=== PATIENT | female | born 1950 | race Caucasian/White ===

== ENCOUNTER → 2016-08-02 | Outpatient (CLI) | payer MEDICARE, OTHER | LOC: MW.CHFP 08:00 | DX: NODX10 (principal) ==

== ENCOUNTER → 2016-08-16 | Outpatient (CLI) | payer MEDICARE, OTHER | LOC: MW.CHFP 08:00 | PROVIDERS: ATTEND Emergency Medicine | DX: E66.01 Morbid (severe) obesity due to excess calories (principal); Z68.41 Body mass index [BMI] 40.0-44.9, adult ==

== ENCOUNTER → 2016-08-23 | Outpatient (CLI) | payer MEDICARE, OTHER | LOC: MW.CHFP 08:00 | PROVIDERS: ATTEND Emergency Medicine | DX: E66.01 Morbid (severe) obesity due to excess calories (principal); Z68.41 Body mass index [BMI] 40.0-44.9, adult ==

== ENCOUNTER → 2016-08-30 | Outpatient (CLI) | payer MEDICARE, OTHER | LOC: MW.CHFP 08:00 | PROVIDERS: ATTEND Emergency Medicine | DX: E66.01 Morbid (severe) obesity due to excess calories (principal); Z68.41 Body mass index [BMI] 40.0-44.9, adult ==

== ENCOUNTER → 2016-09-06 | Outpatient (CLI) | payer MEDICARE, OTHER | LOC: MW.CHFP 08:00 | PROVIDERS: ATTEND Emergency Medicine | DX: E66.01 Morbid (severe) obesity due to excess calories (principal); Z68.41 Body mass index [BMI] 40.0-44.9, adult ==

== ENCOUNTER → 2016-09-12 | Outpatient (CLI) | payer MEDICARE, OTHER ==
[2016-09-12 16:40] LABS: CHLORIDE,CL 104 mmol/L (98-110); SODIUM,NA 141 mmol/L (136-146)
== END | disposition home or self-care (01) ==
LOC: MW.CHFP 15:28
PROVIDERS: ATTEND Emergency Medicine
DX: R73.03 Prediabetes (principal); R73.09 Other abnormal glucose; J20.9 Acute bronchitis, unspecified
CPT/HCPCS: 36415; 80048; 83036; G0463

== ENCOUNTER 2016-09-17 19:57 | Emergency (ER) | payer MEDICARE, OTHER ==
[2016-09-17] MEDS ORDERED: Albuterol/Ipratropium 3.0-0.5 MG/3 ML Neb Soln NEB ONE (20:28)
--- NOTE | 2016-09-17 20:33 | EDM.PDOC ---
ED HISTORY OF PRESENT ILLNESS - General Chief Complaint: Respiratory Problem Stated Complaint: SICK/TROUBLE BREATHING Time Seen by Provider: 09/17/16 20:21 - History of Present Illness INITIAL COMMENTS - FREE TEXT/NARRATIVE: HISTORY AND PHYSICAL: History of present illness: The patient is a 66-year-old female with a history of diabetes who follows with our family practice clinic and presents with a six-day history of cough productive of white and yellow phlegm. Patient was seen last Sunday in the clinic by Dr. Fitch for a routine checkup for diabetes and had blood work done at that time. She states that she mentioned the cough to Dr. Fitch who thought she might have a bronchitis and put her on a Z-Idris. She has finished a Z-Idris and states that her symptoms never seem to improve. She has had subjective fevers and sweating but no documented fever and has had no nausea vomiting or diarrhea. She has no chest pain or shortness of breath. Does have a sore throat or sinus pain/drainage. She says she feels wheezy sometimes when she's trying to sleep but is more a like nasal drip in her throat then it long issue. The patient states she does have a history of influenza for which she was treated in July. Review of systems: As per history of present illness and below otherwise all systems reviewed and negative. Past medical history: As per history of present illness and as reviewed below otherwise noncontributory. Surgical history: As per history of present illness and as reviewed below otherwise noncontributory. Social history: No reported history of drug or alcohol abuse. Family history: As per history of present illness and as reviewed below otherwise noncontributory. Physical exam: General: Well-developed overweight female who has a slight nasal quality to voice. Vital signs of been noted by me. She is not breathless on evaluation. HEENT: Atraumatic, normocephalic, pupils reactive, negative for conjunctival pallor or scleral icterus, mucous membranes moist, throat clear, neck supple, nontender, trachea midline. There is no discrete sinus tenderness on palpation no cervical adenopathy or nuchal rigidity Lungs: Clear to auscultation with an occasional coarse breath sound more in the left base but no work or breathing or sensory muscle use, breath sounds equal bilaterally, there is no wheezing or stridor chest nontender. Heart: S1S2, regular, negative for clicks, rubs, or JVD. Abdomen: Soft, nondistended, nontender. Negative for masses or hepatosplenomegaly. NABS Genitourinary: Deferred. Rectal: Deferred. Extremities: Atraumatic, negative for cords or calf pain. Neurovascular unremarkable. Neuro: Awake, alert, oriented. Cranial nerves II through XII unremarkable. Cerebellum unremarkable. Motor and sensory unremarkable throughout. Exam nonfocal. Diagnostics: CBC CMP influenza swab UA urine culture if indicated chest x-ray Therapeutics: Duo neb Patient states that she does feel more open after the DuoNeb and I will give her inhaler and spacer for home. She is aware of the chest x-ray findings and do to her presentation, nontoxic state and vitals I think we can try outpatient treatment. I will give her a dose of Rocephin here and send her home on Cefdnir. I've advised close followup in the clinic and reasons to return to the ER. Her WBC count from today is improved from the one performed 2 days ago as an outpatient. Repeat O2 sat in the ER is 96% at 2135p Impression: Left lower lobe pneumonia Definitive disposition and diagnosis as appropriate pending reevaluation and review of above. - Related Data Allergies/ADRs: Allergies Allergy/AdvReac Type Severity Reaction Status Date / Time Penicillins Allergy Intermediate Rash Verified 09/17/16 20:14 acetaminophen Allergy Lightheaded Verified 09/17/16 20:14 [From Darvocet-N 100] ness clotrimazole Allergy Itching Verified 09/17/16 20:15 [From Gyne-Lotrimin] miconazole Allergy Itching Verified 09/17/16 20:15 [From Monistat 1 Combo Pack] propoxyphene napsylate Allergy Lightheaded Verified 09/17/16 20:14 [From Darvocet-N 100] ness skin cleanser combination Allergy Itching Verified 09/17/16 20:15 no.17 [From Monistat 3] tioconazole Allergy Itching Verified 09/17/16 20:15 [From Monistat 1 (tioconazole)] Home Meds: Home Meds Furosemide [Lasix] 20 mg PO DAILY PRN 08/10/14 [History] LORazepam [Ativan] 1 mg PO ASDIRECTED PRN 08/10/14 [History] Sertraline [Zoloft] 75 mg PO DAILY 07/23/16 [History] Past Medical History HEENT History: Reports: None Cardiovascular History: Reports: None Respiratory History: Reports: None PLANT PATHOLOGIST History: Reports: None Musculoskeletal History: Reports: Arthritis Neurological History: Reports: None Psychiatric History: Reports: Anxiety, Depression Endocrine/Metabolic History: Reports: Diabetes, type II - Infectious Disease History Infectious Disease History: Reports: Chicken pox, Measles, Mumps - Past Surgical History GI Surgical History: Reports: Appendectomy, Cholecystectomy Female Surgical History: Reports: Hysterectomy Social & Family History - Family History Family Medical History: Noncontributory - Tobacco Use Smoking Status *Q: Never Smoker Second Hand Smoke Exposure: No - Caffeine Use Caffeine Use: Reports: None - Alcohol Use Days Per Week of Alcohol Use: 0 - Recreational Drug Use Recreational Drug Use: No ED ROS GENERAL - Review of Systems Review Of Systems: ROS reveals no pertinent complaints other than HPI. ED EXAM, GENERAL - Physical Exam Exam: See Below (See dictation) Course - Vital Signs Last Recorded V/S: Last Vital Signs Temp 37.0 C 09/17/16 20:08 Pulse 97 09/17/16 20:08 Resp 18 09/17/16 20:08 BP 142/67 H 09/17/16 20:08 Pulse Ox 99 09/17/16 20:28 - Orders/Labs/Meds Orders: Active Orders 24 hr Category Date Time Status Communication Order [RC] STAT Care 09/17/16 21:35 Active RT Aerosol Therapy [RC] ASDIRECTED Care 09/17/16 20:28 Active Chest 2V [CR] Stat Exams 09/17/16 20:28 Taken INFLUENZA A+B AG SCREEN [RM] Stat Lab 09/17/16 20:50 Received Labs: Laboratory Tests 09/17/16 09/17/16 09/17/16 Range/Units 20:35 20:50 20:50 WBC 13.30 H (4.0-11.0) K/uL RBC 4.09 L (4.30-5.90) M/uL Hgb 11.3 L (12.0-16.0) g/dL Hct 35.5 L (36.0-46.0) % MCV 86.8 (80.0-98.0) fL MCH 27.6 (27.0-32.0) pg MCHC 31.8 (31.0-37.0) g/dL RDW Std Deviation 43.7 (28.0-62.0) fl RDW Coeff of Linsey 14 (11.0-15.0) % Plt Count 341 (150-400) K/uL MPV 9.30 (7.40-12.00) fL Neut % (Auto) 75.6 (48.0-80.0) % Lymph % (Auto) 16.7 (16.0-40.0) % [place] % (Auto) 6.9 (0.0-15.0) % Eos % (Auto) 0.6 (0.0-7.0) % Baso % (Auto) 0.2 (0.0-1.5) % Neut # (Auto) 10.1 H (1.4-5.7) K/uL Lymph # (Auto) 2.2 (0.6-2.4) K/uL [place] # (Auto) 0.9 H (0.0-0.8) K/uL Eos # (Auto) 0.1 (0.0-0.7) K/uL Baso # (Auto) 0.0 (0.0-0.1) K/uL Nucleated RBC % 0.0 /100WBC Nucleated RBCs # 0 K/uL Sodium 140 (136-146) mmol/L Potassium 3.9 (3.5-5.1) mmol/L Chloride 106 (98-110) mmol/L Carbon Dioxide 24 (21-31) mmol/L BUN 11 (6.0-23.0) mg/dL Creatinine 0.8 (0.6-1.5) mg/dL Est Cr Clr Drug Dosing 55.45 mL/min Estimated GFR (MDRD) > 60.0 ml/min Glucose 95 (60-110) mg/dL Calcium 9.0 (8.8-10.8) mg/dL Total Bilirubin 0.3 (0.1-1.5) mg/dL AST 13 (5-40) IU/L ALT 12 (8-54) IU/L Alkaline Phosphatase 57 (40-150) Total Protein 6.7 (6.0-8.0) g/dL Albumin 3.5 (3.4-4.8) g/dL Globulin 3.2 (2.0-3.5) g/dL Albumin/Globulin Ratio 1.1 L (1.3-2.8) Urine Color YELLOW Urine Appearance CLEAR Urine pH 7.0 (5.0-8.0) Ur Specific [place] 1.015 (1.001-1.035) Urine Protein TRACE (NEGATIVE) mg/dL Urine Glucose (UA) NEGATIVE (NEGATIVE) mg/dL Urine Ketones TRACE H (NEGATIVE) mg/dL Urine Occult Blood NEGATIVE (NEGATIVE) Urine Nitrite NEGATIVE (NEGATIVE) Urine Bilirubin NEGATIVE (NEGATIVE) Urine Urobilinogen 2.0 H (<2.0) EU/dL Ur Leukocyte Esterase NEGATIVE (NEGATIVE) Urine RBC 0-2 (0-2/HPF) Urine WBC 1-2 (0-5/HPF) Ur Epithelial Cells OCCASIONAL (NONE-FEW) Urine Bacteria FEW (NEGATIVE) Urine Mucus LIGHT (NONE-MOD) Meds: Medications Discontinued Medications Generic Name Dose Route Start Last Admin Trade Name Freq PRN Reason Stop Dose Admin Albuterol/Ipratropium 3 ml 09/17/16 20:28 09/17/16 20:42 Duoneb 3.0-0.5 Mg/3 Ml NEB 09/17/16 20:29 3 ml ONETIME ONE Administration Ceftriaxone Sodium 1,000 mg/ 4 mls @ 4 mls/sec 09/17/16 21:37 09/17/16 21:52 Lidocaine HCl IM 09/17/16 21:38 4 mls/sec ONETIME ONE Administration Departure - Departure Time of Disposition: 21:56 Disposition: Home, Self-Care 01 Condition: good Clinical Impression: Pneumonia Qualifiers: Pneumonia type: due to unspecified organism Laterality: left Lung location: lower lobe of lung Qualified Code(s): J18.1 - Lobar pneumonia, unspecified organism Forms: ED Department Discharge Additional Instructions: The following information is given to patients seen in the emergency department who are being discharged to home. This information is to outline your options for follow-up care. We provide all patients seen in our emergency department with a follow-up referral. The need for follow-up, as well as the timing and circumstances, are variable depending upon the specifics of your emergency department visit. If you don't have a primary care physician on staff, we will provide you with a referral. We always advise you to contact your personal physician following an emergency department visit to inform them of the circumstance of the visit and for follow-up with them and/or the need for any referrals to a consulting specialist. The emergency department will also refer you to a specialist when appropriate. This referral assures that you have the opportunity for followup care with a specialist. All of these measure are taken in an effort to provide you with optimal care, which includes your followup. Under all circumstances we always encourage you to contact your private physician who remains a resource for coordinating your care. When calling for followup care, please make the office aware that this follow-up is from your recent emergency room visit. If for any reason you are refused follow-up, please contact the [facility] emergency department at and ask to speak to the emergency department charge nurse. [facility] Primary care- Internal Medicine and Family [address] [address] Please take antibiotics as directed and use your inhaler as needed every 6 hours. Use Tessalon Perles for cough. Please push hydration and rest and use [id number] Tylenol/ibuprofen for fever and pains. Please return to ER as needed and as discussed and also call the clinic tomorrow for a followup appointment with Dr. Fitch later this week. - My Orders Last 24 Hours: My Active Orders 09/17/16 20:28 RT Aerosol Therapy [RC] ASDIRECTED Chest 2V [CR] Stat 09/17/16 20:50 INFLUENZA A+B AG SCREEN [RM] Stat 09/17/16 21:35 Communication Order [RC] STAT - Assessment/Plan Last 24 Hours: My Active Orders 09/17/16 20:28 RT Aerosol Therapy [RC] ASDIRECTED Chest 2V [CR] Stat 09/17/16 20:50 INFLUENZA A+B AG SCREEN [RM] Stat 09/17/16 21:35 Communication Order [RC] STAT
[2016-09-17 21:24] LABS: CHLORIDE,CL 106 mmol/L (98-110); SODIUM,NA 140 mmol/L (136-146)
[2016-09-17] MEDS ORDERED: cefTRIAXone 1,000 MG in Lidocaine 1% 4 ML IM ONE (21:37)
[2016-09-17 21:58] VITALS: BP 143/64
--- NOTE | 2016-09-18 12:19 | CR ---
EXAM DATE: 09/17/16 PATIENT'S AGE: 66 Patient: JUANITA BRADY Facility: [place], [place] Site . Site : 1950 Study: XRay Chest [id number]/16/2017 9:07:56 PM Ordering Physician: Tasha Lindsay Final Report: TECHNIQUE: PA and lateral chest. INDICATIONS: Pain, shortness of breath, cough. FINDINGS: Subtle opacity in the left lower lobe best seen on the lateral view and compatible with pneumonia. Right lung clear. Heart size and pulmonary vascularity are normal. Upper abdominal surgical clips. IMPRESSION: Left lower lobe pneumonia. Dictated by Blaine Chairez MD @ 09/17/2016 9:20:58 PM Dictated by: Blaine Chairez MD @ 09/17/2016 21:21:02 (Electronic Signature) Report Signed by Proxy and Original Signed Document filed in the Medical Record. MTDD
== END 2016-09-17 22:21 | disposition home or self-care (01) ==
LOC: MW.ED 19:57
DX: J18.1 Lobar pneumonia, unspecified organism (principal); F41.8 Other specified anxiety disorders; E11.9 Type 2 diabetes mellitus without complications; Z90.49 Acquired absence of other specified parts of digestive tract; Z90.710 Acquired absence of both cervix and uterus; Z79.899 Other long term (current) drug therapy; Z88.0 Allergy status to penicillin; Z88.6 Allergy status to analgesic agent; Z88.8 Allergy status to other drugs, medicaments and biological substances
CPT/HCPCS: 36415; 71020; 80053; 81001; 85025; 87804; 94664; 96372; 99284; J0696

== ENCOUNTER → 2016-09-20 | Outpatient (CLI) | payer MEDICARE, OTHER ==
--- NOTE | 2016-09-20 15:46 | CR ---
EXAMINATION: Two-view chest (PA and Lateral views). HISTORY: Pneumonia. Comparison: 09/17/2016. FINDINGS: The trachea is midline. The cardiomediastinal silhouette is within normal limits. There is patchy in filtrate within the left lung base, grossly unchanged. No pleural effusion or pneumothorax. Osseous structures appear unremarkable. IMPRESSION: Patchy, unchanged left basilar infiltrate.
== END | disposition home or self-care (01) ==
LOC: MW.CHFP 15:10
PROVIDERS: ATTEND Emergency Medicine
DX: J18.1 Lobar pneumonia, unspecified organism (principal); R06.2 Wheezing; G47.10 Hypersomnia, unspecified; G47.30 Sleep apnea, unspecified
CPT/HCPCS: 71020; 71020-26; G0463

== ENCOUNTER → 2016-10-04 | Outpatient (CLI) | payer MEDICARE, OTHER | LOC: MW.CHFP 16:14 | PROVIDERS: ATTEND Physician Assistant | DX: E61.1 Iron deficiency (principal); J02.9 Acute pharyngitis, unspecified | CPT/HCPCS: 36415; 83540; G0463 ==

== ENCOUNTER → 2016-10-05 | Outpatient (CLI) | payer MEDICARE, OTHER | LOC: MW.CHFP 09:38 | PROVIDERS: ATTEND Physician Assistant | DX: J02.9 Acute pharyngitis, unspecified (principal) | CPT/HCPCS: 87081; 87880 ==

== ENCOUNTER → 2016-10-06 | Outpatient (CLI) | payer MEDICARE, OTHER | LOC: MW.CHFP 08:00 | PROVIDERS: ATTEND Emergency Medicine | DX: E61.1 Iron deficiency (principal); J06.9 Acute upper respiratory infection, unspecified; B97.89 Other viral agents as the cause of diseases classified elsewhere | CPT/HCPCS: G0463 ==

== ENCOUNTER → 2016-10-11 | Outpatient (CLI) | payer MEDICARE, OTHER | LOC: MW.CHFP 08:00 | PROVIDERS: ATTEND Emergency Medicine | DX: NODX10 (principal); E66.01 Morbid (severe) obesity due to excess calories; Z68.41 Body mass index [BMI] 40.0-44.9, adult ==

== ENCOUNTER 2017-05-02 06:15 | Emergency (ER) | payer MEDICARE, OTHER ==
[2017-05-02 06:30] VITALS: BP 144/52
--- NOTE | 2017-05-02 06:46 | EDM.PDOC ---
ED HPI GENERAL MEDICAL PROBLEM - General Chief Complaint: ENT Problem Stated Complaint: MOUTH SORES, LINGERING COLD, EYES MATTERED SHUT Time Seen by Provider: 05/02/17 06:43 - History of Present Illness INITIAL COMMENTS - FREE TEXT/NARRATIVE: HISTORY AND PHYSICAL: History of present illness: Patient 67-year-old white female presents with a concern of recent viral syndrome now has oral lesions and concern of discomfort. Review of systems: As per history of present illness and below otherwise all systems reviewed and negative. Past medical history: As per history of present illness and as reviewed below otherwise noncontributory. Surgical history: As per history of present illness and as reviewed below otherwise noncontributory. Social history: No reported history of drug or alcohol abuse. Family history: As per history of present illness and as reviewed below otherwise noncontributory. Physical exam: HEENT: Atraumatic, normocephalic, pupils reactive, negative for conjunctival pallor or scleral icterus, mucous membranes moist, throat clear, neck supple, nontender, trachea midline. Patient has multiple aphthous ulcers consistent with viral plaque noted intraorally Lungs: Clear to auscultation, breath sounds equal bilaterally, chest nontender. Heart: S1S2, regular, negative for clicks, rubs, or JVD. Abdomen: Soft, nondistended, nontender. Negative for masses or hepatosplenomegaly. Negative for costovertebral tenderness. Pelvis: Stable nontender. Genitourinary: Deferred. Rectal: Deferred. Extremities: Atraumatic, negative for cords or calf pain. Neurovascular unremarkable. Neuro: Awake, alert, oriented. Cranial nerves II through XII unremarkable. Cerebellum unremarkable. Motor and sensory unremarkable throughout. Exam nonfocal. Diagnostics: None Therapeutics: None Impression: #1 aphthous ulcers probable viral syndrome Definitive disposition and diagnosis as appropriate pending reevaluation and review of above. oral Pain Score (Numeric/FACES): 7 - Related Data Allergies Allergy/AdvReac Type Severity Reaction Status Date / Time Penicillins Allergy Intermediate Rash Verified 05/02/17 06:31 acetaminophen Allergy Lightheaded Verified 05/02/17 06:31 [From Darvocet-N 100] ness clotrimazole Allergy Itching Verified 05/02/17 06:31 [From Gyne-Lotrimin] leuprolide [From Lupron] Allergy Other Verified 05/02/17 06:31 miconazole Allergy Itching Verified 05/02/17 06:31 [From Monistat 1 Combo Pack] propoxyphene napsylate Allergy Lightheaded Verified 05/02/17 06:31 [From Darvocet-N 100] ness skin cleanser combination Allergy Itching Verified 05/02/17 06:31 no.17 [From Monistat 3] tioconazole Allergy Itching Verified 05/02/17 06:31 [From Monistat 1 (tioconazole)] Home Meds: Home Meds Furosemide [Lasix] 20 mg PO DAILY PRN 08/10/14 [History] LORazepam [Ativan] 1 mg PO BEDTIME 08/10/14 [History] Sertraline [Zoloft] 75 mg PO DAILY 07/23/16 [History] Past Medical History HEENT History: Reports: Impaired Vision Cardiovascular History: Reports: None Respiratory History: Reports: None Gastrointestinal History: Reports: None Genitourinary History: Reports: None ONCOLOGY NURSE History: Reports: Other OB/BYN History: miscarriage Musculoskeletal History: Reports: Arthritis Neurological History: Reports: None Psychiatric History: Reports: Anxiety, Depression Endocrine/Metabolic History: Reports: Diabetes, Type II Other Endocrine/Metabolic History: pre-diabetes - Infectious Disease History Infectious Disease History: Reports: Chicken Pox, Measles - Past Surgical History HEENT Surgical History: Reports: None GI Surgical History: Reports: Appendectomy, Cholecystectomy Female Surgical History: Reports: Section, Hysterectomy, Oophorectomy Endocrine Surgical History: Reports: None Musculoskeletal Surgical History: Reports: None Social & Family History - Family History Family Medical History: Noncontributory - Tobacco Use Smoking Status *Q: Never Smoker Second Hand Smoke Exposure: No - Caffeine Use Caffeine Use: Reports: Soda - Alcohol Use Days Per Week of Alcohol Use: 0 - Recreational Drug Use Recreational Drug Use: No ED ROS GENERAL - Review of Systems Review Of Systems: ROS reveals no pertinent complaints other than HPI. ED EXAM, GENERAL - Physical Exam Exam: See Below (See dictation) Course - Vital Signs Last Recorded V/S: Last Vital Signs Temp 36.3 C 05/02/17 06:26 Pulse 88 05/02/17 06:26 Resp 20 05/02/17 06:26 BP 144/52 H 05/02/17 06:26 Pulse Ox 97 11/29/17 06:26 Departure - Departure Time of Disposition: 06:45 Disposition: Home, Self-Care 01 Condition: Good Clinical Impression: Aphthous ulcer of mouth, Viral syndrome - Discharge Information Referrals: Mike Fitch MD [Primary Care Provider] - Additional Instructions: The following information is given to patients seen in the emergency department who are being discharged to home. This information is to outline your options for follow-up care. We provide all patients seen in our emergency department with a follow-up referral. The need for follow-up, as well as the timing and circumstances, are variable depending upon the specifics of your emergency department visit. If you don't have a primary care physician on staff, we will provide you with a referral. We always advise you to contact your personal physician following an emergency department visit to inform them of the circumstance of the visit and for follow-up with them and/or the need for any referrals to a consulting specialist. The emergency department will also refer you to a specialist when appropriate. This referral assures that you have the opportunity for followup care with a specialist. All of these measure are taken in an effort to provide you with optimal care, which includes your followup. Under all circumstances we always encourage you to contact your private physician who remains a resource for coordinating your care. When calling for followup care, please make the office aware that this follow-up is from your recent emergency room visit. If for any reason you are refused follow-up, please contact the [facility] emergency department at and asked to speak to the emergency department charge nurse. Follow-up primary medical doctor 1-2 days saltwater rinses discussed return as needed as discussed
== END 2017-05-02 06:58 | disposition home or self-care (01) ==
LOC: MW.ED 06:15
DX: K12.0 Recurrent oral aphthae (principal); B34.9 Viral infection, unspecified; E11.9 Type 2 diabetes mellitus without complications; Z88.0 Allergy status to penicillin; Z88.8 Allergy status to other drugs, medicaments and biological substances; Z79.899 Other long term (current) drug therapy
CPT/HCPCS: 99282

== ENCOUNTER 2017-10-25 19:26 | Emergency (ER) | payer MEDICARE, OTHER ==
--- NOTE | 2017-10-25 19:32 | EDM.PDOC ---
ED HPI GENERAL MEDICAL PROBLEM - General Chief Complaint: Upper Extremity Injury/Pain Stated Complaint: FALL/PAIN RT ARM Time Seen by Provider: 10/25/17 19:31 Source of Information: Reports: Patient - History of Present Illness INITIAL COMMENTS - FREE TEXT/NARRATIVE: HISTORY AND PHYSICAL: History of present illness: [Patient complains of right shoulder pain after a fall getting into the swimming pool she rates pain 6 out of 10 nonradiating, also tender along elbow on exam denies head injury or loss of consciousness no fever nausea vomiting chills sweats ] Review of systems: As per history of present illness and below otherwise all systems reviewed and negative. Past medical history: As per history of present illness and as reviewed below otherwise noncontributory. Surgical history: As per history of present illness and as reviewed below otherwise noncontributory. Social history: No reported history of drug or alcohol abuse. Family history: As per history of present illness and as reviewed below otherwise noncontributory. Physical exam: HEENT: Atraumatic, normocephalic, pupils reactive, negative for conjunctival pallor or scleral icterus, mucous membranes moist, throat clear, neck supple, nontender, trachea midline. Lungs: Clear to auscultation, breath sounds equal bilaterally, chest nontender. Heart: S1S2, regular, negative for clicks, rubs, or JVD. Abdomen: Soft, nondistended, nontender. Negative for masses or hepatosplenomegaly. Negative for costovertebral tenderness. Pelvis: Stable nontender. Genitourinary: Deferred. Rectal: Deferred. Extremities: Atraumatic, negative for cords or calf pain. Neurovascular unremarkable. Right upper extremity no pain with head movement limited shoulder exam due to pain tender over her olecranon no bruising or open lesion entirely limb is neurovascularly intact wrist is painless with free motion Neuro: Awake, alert, oriented. Cranial nerves II through XII unremarkable. Cerebellum unremarkable. Motor and sensory unremarkable throughout. Exam nonfocal. Diagnostics: [Right shoulder 3 views Right elbow 3 views ] Therapeutics: [Shoulder immobilizer placed Discussed with Dr. Duffy, orthopedist on-call at [facility] call office to schedule an appointment Makenzie Kilpatrick per [phone] no refill Rest ice ibuprofen Discussed with Dr. Duffy orthopedic on-call at [facility] he would willingly see the patient in the office, however the patient prefers to follow locally so hence ER referral provided ] Impression: [Right mildly displaced tuberosity fracture of the humeral head Definitive disposition and diagnosis as appropriate pending reevaluation and review of above. right upper arm Pain Score (Numeric/FACES): 8 - Related Data Allergies Allergy/AdvReac Type Severity Reaction Status Date / Time Penicillins Allergy Intermediate Rash Verified 10/25/17 19:35 acetaminophen Allergy Lightheaded Verified 10/25/17 19:35 [From Darvocet-N 100] ness clotrimazole Allergy Itching Verified 10/25/17 19:35 [From Gyne-Lotrimin] leuprolide [From Lupron] Allergy Other Verified 10/25/17 19:35 miconazole Allergy Itching Verified 10/25/17 19:35 [From Monistat 1 Combo Pack] propoxyphene napsylate Allergy Lightheaded Verified 10/25/17 19:35 [From Darvocet-N 100] ness skin cleanser combination Allergy Itching Verified 10/25/17 19:35 no.17 [From Monistat 3] tioconazole Allergy Itching Verified 10/25/17 19:35 [From Monistat 1 (tioconazole)] Home Meds: Home Meds Furosemide [Lasix] 20 mg PO DAILY PRN 08/10/14 [History] Sertraline [Zoloft] 75 mg PO DAILY 07/23/16 [History] Past Medical History HEENT History: Reports: Impaired Vision Cardiovascular History: Reports: None Respiratory History: Reports: None Gastrointestinal History: Reports: None Genitourinary History: Reports: None [employer] History: Reports: Other OB/BYN History: miscarriage Musculoskeletal History: Reports: Arthritis Neurological History: Reports: None Psychiatric History: Reports: Anxiety, Depression Endocrine/Metabolic History: Reports: Diabetes, Type II Other Endocrine/Metabolic History: pre-diabetes - Infectious Disease History Infectious Disease History: Reports: Chicken Pox, Measles - Past Surgical History HEENT Surgical History: Reports: None GI Surgical History: Reports: Appendectomy, Cholecystectomy Female Surgical History: Reports: Section, Hysterectomy, Oophorectomy Endocrine Surgical History: Reports: None Musculoskeletal Surgical History: Reports: None Social & Family History - Family History Family Medical History: Noncontributory - Caffeine Use Caffeine Use: Reports: Soda Review of Systems - Review of Systems Review Of Systems: See Below ED EXAM, GENERAL - Physical Exam Exam: See Below Course - Vital Signs Last Recorded V/S: Last Vital Signs Temp 98 F 10/25/17 19:30 Pulse 98 10/25/17 19:30 Resp 18 10/25/17 19:30 BP 141/76 H 10/25/17 19:30 Pulse Ox 97 10/25/17 19:30 - Orders/Labs/Meds Orders: Active Orders 24 hr Category Date Time Status Elbow 2V Rt [CR] Stat Exams 10/25/17 19:31 Taken Shoulder Comp Rt [CR] Stat Exams 10/25/17 19:31 Taken Departure - Departure Time of Disposition: 20:21 Disposition: Home, Self-Care 01 Condition: Good Clinical Impression: Fracture of humeral head, closed - Discharge Information Forms: ED Department Discharge Additional Instructions: Medication as prescribed Shoulder immobilizer provided Ibuprofen 400 mg -800 mg by mouth every 8 hours as needed 7-10 days Eyes 3 times daily as needed Follow-up with orthopedist, ER referral provided, you should receive phone call tomorrow to schedule appropriate follow-up [facility] [address], [address] [place] [address] my orthopedic The following information is given to patients seen in the emergency department who are being discharged to home. This information is to outline your options for follow-up care. We provide all patients seen in our emergency department with a follow-up referral. The need for follow-up, as well as the timing and circumstances, are variable depending upon the specifics of your emergency department visit. If you don't have a primary care physician on staff, we will provide you with a referral. We always advise you to contact your personal physician following an emergency department visit to inform them of the circumstance of the visit and for follow-up with them and/or the need for any referrals to a consulting specialist. The emergency department will also refer you to a specialist when appropriate. This referral assures that you have the opportunity for follow-up care with a specialist. All of these measure are taken in an effort to provide you with optimal care, which includes your follow-up. Under all circumstances we always encourage you to contact your private physician who remains a resource for coordinating your care. When calling for follow-up care, please make the office aware that this follow-up is from your recent emergency room visit. If for any reason you are refused follow-up, please contact the [facility] emergency department at and asked to speak to the emergency department charge nurse. - My Orders Last 24 Hours: My Active Orders 10/25/17 19:31 Elbow 2V Rt [CR] Stat Shoulder Comp Rt [CR] Stat - Assessment/Plan Last 24 Hours: My Active Orders 10/25/17 19:31 Elbow 2V Rt [CR] Stat Shoulder Comp Rt [CR] Stat
[2017-10-25 20:53] VITALS: BP 152/76
--- NOTE | 2017-10-26 17:08 | CR ---
EXAM DATE: 10/25/17 PATIENT'S AGE: 67 Patient: JUANITA BRADY Facility: [place], [place] Site . Site : 1950 Study: XRay Shoulder Right [id number]/24/2018 7:48:47 PM Ordering Physician: Doctor Gordon Final Report: INDICATION: R shoulder pain after fall today at the pool TECHNIQUE: Two views of the right shoulder COMPARISON: None FINDINGS: Bones: Mildly displaced greater tuberosity fracture of the right humeral head. Joint spaces: Degenerative changes of the acromioclavicular joint. No evidence of dislocation. Soft tissues: Unremarkable. IMPRESSION: Mildly displaced greater tuberosity fracture of the right humeral head Dictated by Junior Chen MD @ 10/25/2017 8:01:54 PM Dictated by: Junior Chen MD @ 10/25/2017 20:02:01 (Electronic Signature) Report Signed by Proxy. DONG
--- NOTE | 2017-10-26 17:09 | CR ---
EXAM DATE: 10/25/17 PATIENT'S AGE: 67 Patient: JUANITA BRADY Facility: [place], [place] Site . Site : 1950 Study: XRay Extremity Right ELBOW [id number]/24/2018 7:49:05 PM Ordering Physician: Doctor Gordon Final Report: INDICATION: R shoulder pain after fall today at the pool TECHNIQUE: Two views of the right elbow. No true lateral view of the right elbow is provided. COMPARISON: None FINDINGS: Bones: No fractures or bone lesions. Joint spaces: Unremarkable. Soft tissues: Unremarkable. IMPRESSION: No true lateral view of the right elbow is provided. This degrades evaluation. No gross evidence for acute fracture Dictated by Junior Chen MD @ 10/25/2017 8:03:25 PM Dictated by: Junior Chen MD @ 10/25/2017 20:04:08 (Electronic Signature) Report Signed by Proxy. DONG
== END 2017-10-25 21:03 | disposition home or self-care (01) ==
LOC: MW.ED 19:26
DX: S42.251A Displaced fracture of greater tuberosity of right humerus, initial encounter for closed fracture (principal); E11.9 Type 2 diabetes mellitus without complications; Z88.0 Allergy status to penicillin; Z88.8 Allergy status to other drugs, medicaments and biological substances; Z79.899 Other long term (current) drug therapy; W17.89XA Other fall from one level to another, initial encounter; Y92.89 Other specified places as the place of occurrence of the external cause
CPT/HCPCS: 73030-26-RT; 73030-RT; 73070-26-RT; 73070-RT; 99283